=== PATIENT | female | born 1980 | race Caucasian/White ===

== ENCOUNTER 2017-06-30 08:10 | Inpatient (IN) | payer MEDICAID ==
[~2017-06-30] VITALS: Ht 157.5 cm; Wt 89.6 kg
[2017-06-30 08:27] VITALS: Ht 157.5 cm; Wt 89.6 kg
[2017-06-30 08:28] VITALS: BP 122/61; PULSE 81
[2017-06-30] MEDS ORDERED: ACET500C5 PO (08:40)
[2017-06-30] MEDS ORDERED: PRENAT PO (08:40)
[2017-06-30] MEDS ORDERED: MAGNESIUM SULFATE 4 GM/100 ML 100 ML IV ONE (09:30)
[2017-06-30] MEDS: LACTATED RINGER'S 1,000 ML IV SCH ×2 (10:02→15:02)
[2017-06-30 10:45] LABS: ADD UMIC NO; UR ASCORBIC ACID NEGATIVE (NEGATIVE); UR BILIRUBIN (Dip) NEGATIVE (NEGATIVE); UR BLOOD (Dip) NEGATIVE (NEGATIVE); UR CLARITY CLEAR (CLEAR); UR COLOR STRAW (YELLOW); UR GLUCOSE (Dip) NEGATIVE (NEGATIVE); UR KETONES (Dip) NEGATIVE (NEGATIVE); UR LEUKOCYTE ESTERASE (Dip) NEGATIVE Leu/ul (NEGATIVE); UR NITRITE (Dip) NEGATIVE (NEGATIVE); UR SPECIFIC GRAVITY (Dip) 1.009 (1.003-1.030); UR TOTAL PROTEIN (Dip) NEGATIVE (NEGATIVE); UR UROBILINOGEN (Dip) NEGATIVE (NEGATIVE)
--- NOTE | 2017-06-30 10:55 | RADRPT ---
PROCEDURE: Obstetrical ultrasound CLINICAL INDICATION: labor TECHNIQUE: Multiple sonographic images of the pelvis were obtained. The images were reviewed on a PACS workstation. COMPARISON: None FINDINGS: The cervix is closed with a length of 4.3 cm. There is a single viable intrauterine gestation. Cardiac activity is present with 154 beats per minute. There is a breech presentation. The placenta is anterior. There is no evidence for an abruption or placenta previa. There is a subjectively normal amount of amniotic fluid. Measurements were made in order to determine age. The results are as follows (cm): BPD =6.30 HC =22.51 AC =20.76 FL =4.71 Estimated gestational age by ultrasound of approximately 25 weeks, 2 days. The estimated date of delivery by ultrasound is 10/11/2017. Estimated gestational age by LMP of approximately 25 weeks, 0 days. The estimated date of delivery by LMP is 10/13/2017. EFW = 805 grams (58th percentile) IMPRESSION: Single viable intrauterine gestation of approximately 25 weeks, 2 days . The estimated date of delivery is 10/11/2017 . Dating by ultrasound is within 2 days of dating by LMP. Breech presentation. The cervix is closed and measures 4.3 cm in length. RPTAT: EE Physician John Date Time Electronically viewed and signed by Physician John on 06/30/2017 10:54 MAYELIN
[2017-06-30] MEDS: BETAMET NA PHOS/AC(6 MG/ML) 5ML INJ IM SCH (11:19)
[2017-06-30] MEDS: MAGNESIUM SULFATE 20 GM/500 ML 500 ML IV SCH ×2 (11:25→21:45)
[2017-06-30] MEDS ORDERED: ZOLPIDEM 5 MG TAB PO PRN (11:30)
[2017-06-30] MEDS ORDERED: ACETAMINOPHEN 325 MG TAB PO PRN (11:30)
--- NOTE | 2017-06-30 11:57 | HP ---
Date/Time of Note Date/Time of Note DATE: 06/30/17 TIME: 11:55 OB - History Hx of Present Free Text/Dictation 25+wks With CTX Was evaluated and idscharged in [place] last night : 2 Para: 1 Care: Good Care Ultrasounds: Normal mid trimester US Obstetrical Complications: None Medical Complications: None Past Family/Social History * Past Medical, Surgical, Family and Obstetric Histories reviewed from chart. OB Admission Exam Vital Signs Vital Signs Vital Signs Date Time Temp Pulse Resp B/P Pulse Ox O2 Delivery O2 Flow Rate FiO2 06/30/17 08:28 98.1 81 122/61 Physical Exam Abdomen: WNL Membranes: Intact Accelerations: Accelerations Present Decelerations: No Decelerations Varibility: Minimum Contractions on Admission: < 5 Minutes Apart OB Assessment/Plan Reason for admission: observation Plan: Expectant Management Other plan: Mg Steroid Prenatalogy consult\ CXL &EFW F/u records from [place] Urine culture MACHO TENORIO M.D. Jun 30, 2017 11:57
[2017-06-30 12:37] LABS: BASOPHILS % 0.2 % (0.0-2.0); EOSINOPHILS # 0.1 10^3/ul (0.0-0.5); EOSINOPHILS % 0.6 % (0.0-7.0); HEMATOCRIT 38.6 % (37.0-47.0); HEMOGLOBIN 13.5 g/dl (12.0-16.0); LYMPHOCYTES # 1.7 10^3/ul (0.8-2.9); LYMPHOCYTES % 13.6 % (15.0-51.0); MEAN CORPUSCULAR VOLUME 88.5 fl (82.0-101.0); MEAN PLATELET VOLUME 11.3 fl (7.4-10.4); MONOCYTE # 0.7 10^3/ul (0.3-0.9); MONOCYTES % 5.7 % (0.0-11.0); NEUTROPHILS % 79.4 % (39.0-77.0); PLATELET COUNT 215 10^3/UL (140-415); RED BLOOD COUNT 4.36 10^6/ul (4.20-5.40); RED CELL DISTRIBUTION WIDTH 13.3 % (11.5-14.5); WHITE BLOOD COUNT 12.4 10^3/ul (4.8-10.8)
[2017-06-30 12:50] LABS: BARBITURATES Negative (NEGATIVE); BENZODIAZEPINES Negative (NEGATIVE); CANNABINOIDS Negative (NEGATIVE); COCAINE Negative (NEGATIVE); OPIATES Negative (NEGATIVE)
[2017-06-30 12:55] LABS: INR 0.93; PROTIME 12.5 Sec (12.2-14.2)
[2017-07-01] MEDS: LACTATED RINGER'S 1,000 ML IV SCH ×2 (01:28→02:20)
[2017-07-01] MEDS: MAGNESIUM SULFATE 20 GM/500 ML 500 ML IV SCH (07:34)
--- NOTE | 2017-07-01 08:53 | QN ---
Documentation Comment doing well no uterine ctx tracing category 1 will receive second dose of steroids today and will d/c home LOBITO THAYER MD Jul 01, 2017 08:53
--- NOTE | 2017-07-01 08:54 | DS ---
Date/Time of Note Date/Time of Note DATE: 07/01/17 TIME: 08:54 Discharge Summary Admission/Discharge Info Admit Date/Time Jun 30, 2017 at 09:15 Discharge Date/Time Discharge Diagnosis labor Patient Condition: Stable Hospital Course beta methasone and magnesium Home Meds Reported Medications Acetaminophen* (Tylophen*) 500 Mg Capsule, 500 MG PO Q6H Y for PAIN, TAB 06/30/17 Multivit/Min/Fol Ac/Iron/Pren* ( S*) 1 Tab Tab, 1 TAB PO DAILY, TAB 06/30/17 Primary Care Provider Care Physician No Primary Pending Labs Laboratory Tests Test 06/30/17 10:05 06/30/17 13:49 06/30/17 20:11 07/01/17 02:07 White Blood Count 12.410^3/ul (4.8-10.8) Red Blood Count 4.3610^6/ul (4.20-5.40) Hemoglobin 13.5g/dl (12.0-16.0) Hematocrit 38.6% (37.0-47.0) Mean Corpuscular Volume 88.5fl (82.0-101.0) Mean Corpuscular Hemoglobin 31.0pg (29.0-33.0) Mean Corpuscular Hemoglobin Concent 35.0g/dl (32.0-37.0) Red Cell Distribution Width 13.3% (11.5-14.5) Platelet Count 17308^3/UL (140-415) Mean Platelet Volume 11.3fl (7.4-10.4) Neutrophils % 79.4% (39.0-77.0) Lymphocytes % 13.6% (15.0-51.0) Monocytes % 5.7% (0.0-11.0) Eosinophils % 0.6% (0.0-7.0) Basophils % 0.2% (0.0-2.0) Nucleated Red Blood Cells % 0.0/100WBC (0.0-0.0) Neutrophils # (Manual) 9.810^3/ul (1.7-7.5) Lymphocytes # 1.710^3/ul (0.8-2.9) Monocytes # 0.710^3/ul (0.3-0.9) Eosinophils # 0.110^3/ul (0.0-0.5) Basophils # 0.010^3/ul (0.0-0.1) Nucleated Red Blood Cells # 0.010^3/ul (0.0-0.0) Prothrombin Time 12.5Sec (12.2-14.2) Prothrombin Time Ratio 1.0 INR International Normalized Ratio 0.93 Activated Partial Thromboplast Time 32.0Sec (25.0-35.0) Urine Color STRAW (YELLOW) Urine Clarity CLEAR (CLEAR) Urine pH 7.0 (5.0-9.0) Urine Specific [place] 1.009 (1.003-1.030) Urine Ketones NEGATIVEmg/dL (NEGATIVE) Urine Nitrite NEGATIVEmg/dL (NEGATIVE) Urine Bilirubin NEGATIVEmg/dL (NEGATIVE) Urine Urobilinogen NEGATIVEmg/dL (NEGATIVE) Urine Leukocyte Esterase NEGATIVELeu/ul (NEGATIVE) Urine Hemoglobin NEGATIVEmg/dL (NEGATIVE) Urine Glucose NEGATIVEmg/dL (NEGATIVE) Urine Total Protein NEGATIVEmg/dl (NEGATIVE) Urine Opiates Screen Negative (NEGATIVE) Urine Barbiturates Negative (NEGATIVE) Urine Amphetamines Screen Negative (NEGATIVE) Urine Benzodiazepines Screen Negative (NEGATIVE) Urine Cocaine Screen Negative (NEGATIVE) Urine Cannabinoids Negative (NEGATIVE) Rapid Plasma Reagin NONREACTIVE (NR) Magnesium Level 4.2mg/dl (1.7-2.5) 4.9mg/dl (1.7-2.5) 5.3mg/dl (1.7-2.5) Hepatitis B Surface Antigen NEGATIVE (NEGATIVE) HIV (1&2) Antibody NEGATIVE (NEGATIVE) LOBITO THAYER MD Jul 01, 2017 08:54
[2017-07-01] MEDS: BETAMET NA PHOS/AC(6 MG/ML) 5ML INJ IM SCH (11:28)
[2017-07-02 12:21] LABS: RUBELLA ANTIBODY - IGG 1.45 index
== END 2017-07-01 17:12 | disposition home or self-care (01) | DRG 778 ==
LOC: OBT 08:10 → L-D 08:14 → OBT 09:15 → OBG 09:15
PROVIDERS: ADMIT Obstetrics & Gynecology; ATTEND Obstetrics & Gynecology
DX: O60.02 Preterm labor without delivery, second trimester (principal); Z3A.25 25 weeks gestation of pregnancy
CPT/HCPCS: 76815; 76817; 80307; 81003; 83735; 85025; 85610; 85730; 86592; 86703; 86762; 86900; 86901; 87340; G0463; J0702; J3475; J7120

== ENCOUNTER 2017-08-06 10:17 | Emergency (ER) | payer MEDICAID ==
[~2017-08-06] VITALS: Wt 93.5 kg
[~2017-08-06 10:17] MED LIST: ACET500C5 PO; PRENAT PO
[2017-08-06] MEDS ORDERED: ACETAMINOPHEN 325 MG TAB PO ONE (11:00)
--- NOTE | 2017-08-06 11:10 | ERD ---
ER Documentation Chief Complaint Date/Time DATE: 08/06/17 TIME: 11:07 Chief Complaint chest pain x1 day, pt 30 wks pg, no vb/cramping HPI This is a very pleasant 37-year-old female who is a at approximately 30 weeks gestation who presents to the emergency room with chest pain. She describes approximately 24 hours of left-sided chest pain that is dull, worse to touch and worse with movement of her chest but not pleuritic. She denies any sudden onset of pain, no migratory pain, no pleuritic pain. She denies any dyspnea on exertion or lower extremity swelling. She denies any abdominal bloating or swelling or pain, no vaginal bleeding. No family history of DVT or PE or early cardiac disease. She denies any fevers chills or cough. ROS All systems reviewed and are negative except as per history of present illness. Medications Home Meds Reported Medications Acetaminophen* (Tylophen*) 500 Mg Capsule, 500 MG PO Q6H Y for PAIN, TAB 06/30/17 Multivit/Min/Fol Ac/Iron/Pren* ( S*) 1 Tab Tab, 1 TAB PO DAILY, TAB 06/30/17 Allergies Allergies: Coded Allergies: No Known Allergy (Unverified , 06/30/17) FmHx Family History: No coronary disease, No diabetes Physical Exam Vitals Vital Signs Date Time Temp Pulse Resp B/P Pulse Ox O2 Delivery O2 Flow Rate FiO2 08/06/17 10:19 97.4 92 18 126/76 100 Physical Exam General: Well developed, well nourished, no acute distress Head: Normocephalic, atraumatic. Eyes: Pupils equally reactive, EOM intact ENT: Moist mucous membranes Neck: Supple, no lymphadenopathy Respiratory: Lungs clear bilaterally, no distress, reproducible chest wall tenderness along the left chest and sternum Cardiovascular: RRR, no murmurs, rubs, or gallops Abdominal: Soft, non-tender, non-distended, no peritoneal signs : Deferred MSK: No edema, no unilateral swelling, 5/5 strength Neurologic: Alert and oriented, moving all extremities, normal speech, no focal weakness, no cerebellar signs Skin: No rash Psych: Normal mood Results 24 hrs Current Medications Medications (Trade) Dose Ordered Sig/Mich Route PRN Reason Start Time Stop Time Status Last Admin Dose Admin Acetaminophen (Tylenol Tab) 650 mg ONCE ONCE PO 10/17/17 11:00 08/06/17 11:01 DC Procedures/MDM EKG, MONITORS, & DIAGNOSTIC IMAGING: EKG: I reviewed and interpreted a 12-lead EKG. Rhythm: Normal sinus rhythm Ectopy: None Intervals: No abnormalities ST segments: No elevations or depressions T waves: No contiguous inversions MEDICAL DECISION MAKING: The patient presents with very reproducible chest wall pain. She has not taken any Tylenol or Motrin. A commercial loan administrator was used during her interaction. I believe that her chest pain is most consistent with musculoskeletal etiology. The patient has no signs or symptoms concerning for pneumothorax. Her EKG shows no evidence of cardiac strain or right heart strain. The patient does not exhibit any signs or symptoms concerning for pulmonary embolism. She has no pleuritic pain no hypoxia no tachycardia no evidence of DVT. She has reproducible symptoms. No indication for PE workup given the risks of radiation outweigh the benefits. No indication for chest x-ray for similar reasons. The patient does not have risk factors for early cardiac disease and has a nonischemic EKG I do not believe the laboratory testing or troponin is indicated. No evidence of dissection and no migratory pain. ER COURSE: The patient was given Tylenol and an EKG was performed. The patient remains well-appearing and has been medically cleared in the emergency department for her chest pain. The patient will be discharged and sent to labor and delivery triage for NST and further evaluation. All questions were answered. I kept the patient and/or family informed of laboratory and diagnostic imaging results throughout the emergency room course. DISPOSITION PLAN: We discussed follow up with the patient's primary care doctor within 24 to 48 hours as needed. We also discussed return to the emergency room for worsening symptoms or worsening condition. Outpatient referral: [None required] Discharge Medications: Tylenol as needed for pain Departure Diagnosis: Primary Impression: Chest wall pain Condition: Stable EVELIA SCHREIBER MD Aug 06, 2017 11:10
[2017-08-06] MEDS ORDERED: ACET325T33 PO (11:13)
[2017-08-06 11:28] VITALS: BP 130/89; PULSE 84; RESP 20
[2017-08-06] MEDS ORDERED: OMEP20CA16 PO (12:18)
== END 2017-08-06 11:34 | disposition home or self-care (01) ==
LOC: E/R 10:17
DX: O99.89 Other specified diseases and conditions complicating pregnancy, childbirth and the puerperium (principal); R40.2252 Coma scale, best verbal response, oriented, at arrival to emergency department; R07.89 Other chest pain; R40.2142 Coma scale, eyes open, spontaneous, at arrival to emergency department; R40.2362 Coma scale, best motor response, obeys commands, at arrival to emergency department; Z3A.30 30 weeks gestation of pregnancy
CPT/HCPCS: 93005; Z7502; Z7610

== ENCOUNTER 2017-08-06 11:50 | Outpatient (CLI) | payer MEDICAID ==
[~2017-08-06] VITALS: Ht 157.5 cm; Wt 93.0 kg
[~2017-08-06 11:50] MED LIST changes: +ACET325T33 PO
[2017-08-06] MEDS ORDERED: OMEP20CA16 PO (12:18)
[2017-08-06 12:19] VITALS: BP 114/64; PULSE 70; RESP 18; Ht 157.5 cm; Wt 93.0 kg
--- NOTE | 2017-08-06 13:31 | RADRPT ---
PROCEDURE: US OB biophysical profile. Ultrasound cervix CLINICAL INDICATION: decreased movements, labor TECHNIQUE: Multiple sonographic images of the pelvis were obtained. In addition, transvaginal hua ges of the cervix were obtained. The images were reviewed on a PACS workstation. COMPARISON: US 06/30/2017 FINDINGS: There is a single viable intrauterine gestation. Cardiac activity is present with 142 beats per min chely. There is a transverse maternal left presentation. The placenta is left lateral. There is no evidence of placental abruption. There is a normal amount of amniotic fluid with an DELMER = 15.1 cm. The cervix is closed and measures 4.1 cm in length. Biophysical profile: movement 2/2 tone 2/2. breathing 2/2 DELMER 2/2 Total 05/28 RPTAT: AA . IMPRESSION: Normal biophysical profile. Cervix measures 4.1 cm in length. .Chon Bedolla MD, MD Date Time Electronically viewed and signed by .Chon Bedolla MD, MD on 08/06/2017 13:30 .S/
--- NOTE | 2017-08-06 14:05 | PN ---
Triage Information Date/Time Reason for visit: Cleared by ER for Chest pain .she is here for BPP and well being Weeks of Gestation 30+ /Para 2/1 Diabetes: none Hypertention: none Objective Vital Signs Date Time Temp Pulse Resp B/P Pulse Ox O2 Delivery O2 Flow Rate FiO2 08/06/17 12:19 98.7 70 18 114/64 96 Room Air Heart Rate: 140's Disposition: Discharge MACHO TENORIO M.D. Aug 06, 2017 14:05
--- NOTE | 2017-08-06 14:13 | TRIAGE ---
OB Triage Datetime Report Generated by CPN: 08/06/2017 14:12 Datetime: 08/06/2017 13:08 Stage of : OB Triage Maternal Assessment Level of Consciousness: Fully Conscious Labor Evaluation Frequency: NONE Monitor Mode: External Resting Tone Utting: Relaxed Heart Rate FHR Baseline Rate: 135 Monitor Mode: External US Variability: Moderate 6-25 bpm Accelerations: 15X15 Decelerations: None Category: Category I Pain Assessment Pain Scale: 2 Pain Presence: Constant Pain Type: Ache Pain Location: Right Chest; Left Chest Pain Goal: 3 Pain Relief Measures: PT SEEN AND TREATED FOR C/O CP IN ED PRIOR TO ARRIVAL Vaginal Exam Membrane Status: Intact Vaginal Bleeding: None Datetime: 08/06/2017 12:14 Assessment Type: Triage Maternal Assessment Level of Consciousness: Fully Conscious DTR's/Clonus: DTRs 2+; No Clonus Headache: Denies Blurred Vision: No Respiratory Effort: Unlabored; Regular Rhythm; Equal Expansion Breath Sounds, Left: Clear and Equal Breath Sounds, Right: Clear and Equal Nausea/Vomiting: Denies RUQ Epigastric Pain: Denies Lower Extremities Edema: None Degree: None Upper Extremities Edema: None Degree: None Facial Edema: None Fall Risk Assessment History of Falling: (0) No Secondary Diagnosis: (0) No Ambulatory Aid: (0) Bedrest/Nurse Assist IV Therapy: (0) No Gait: (0) Normal/Bedrest/Immobile Mental Status: (0) Oriented to Own Ability Fall Score: 0 Fall Risk Score Definition: No Risk: No action required Datetime: 08/06/2017 12:12 Time of Arrival: 08/06/2017 11:32 EGA: 30.2 Arrived By: Ambulatory Arrived From: Emergency Dept Chief Complaint: PT SENT FROM ED C/O CP, TO EVAL. FETUS. Movement: Present Contractions: Denies/Absent Rupture of Membranes: Denies Vaginal Bleeding: None Vaginal Discharge: Denies Recent Sexual Intercouse: Denies Abdominal Trauma: Not Applicable Time Provider Notified: 08/06/2017 12:35 Provider Notified: FLACA Initial Plan: EFM, CVL, BPP Datetime: 08/06/2017 12:09 Monitor Mode: External US Datetime: 07/01/2017 16:38 Labor Evaluation Frequency: 0 Monitor Mode: External Resting Tone Utting: Relaxed Heart Rate FHR Baseline Rate: 135 FHR Baseline Changes: No Baseline Change Variability: Moderate 6-25 bpm Accelerations: 10X10 Decelerations: None Comments: aga Pain Presence: None/Denies Datetime: 07/01/2017 14:14 Labor Evaluation Frequency: 0 Monitor Mode: External Resting Tone Utting: Relaxed Datetime: 07/01/2017 13:13 Labor Evaluation Frequency: 0 Monitor Mode: External Resting Tone Utting: Relaxed Contraction Comments: pt denies feeling contractions or cramping Datetime: 07/01/2017 12:37 Labor Evaluation Frequency: 0 Monitor Mode: External Resting Tone Utting: Relaxed Heart Rate FHR Baseline Rate: 130 Monitor Mode: External US FHR Baseline Changes: Bradycardia Variability: Moderate 6-25 bpm Accelerations: 10X10 Decelerations: None Comments: aga Datetime: 07/01/2017 11:10 Labor Evaluation Frequency: 0 Monitor Mode: External Resting Tone Utting: Relaxed Heart Rate FHR Baseline Rate: 125 Monitor Mode: External US FHR Baseline Changes: No Baseline Change Variability: Moderate 6-25 bpm Accelerations: 10X10 Decelerations: None Comments: aga Datetime: 07/01/2017 11:00 Labor Evaluation Frequency: 0 Monitor Mode: External Duration (sec)2399: 0 Pattern: Normal: <= 5 Contractions in 10 Minutes Resting Tone Utting: Relaxed Contraction Comments: DENIES ANY UC'S. ABDOMEN SOFT TO PALPATION Heart Rate FHR Baseline Rate: 130 Monitor Mode: External US FHR Baseline Changes: No Baseline Change Variability: Moderate 6-25 bpm Accelerations: 10X10 Decelerations: None Category: Category I Datetime: 07/01/2017 10:29 Labor Evaluation Frequency: 0 Monitor Mode: External Duration (sec)2399: 0 Pattern: Normal: <= 5 Contractions in 10 Minutes Resting Tone Utting: Relaxed Heart Rate FHR Baseline Rate: 130 Monitor Mode: External US FHR Baseline Changes: No Baseline Change Variability: Moderate 6-25 bpm Accelerations: 10X10 Decelerations: None Category: Category I Datetime: 07/01/2017 09:59 Maternal Assessment Level of Consciousness: Fully Conscious DTR's/Clonus: DTRs 2+ Headache: Denies Blurred Vision: No Nausea/Vomiting: Denies RUQ Epigastric Pain: Denies Facial Edema: None Labor Evaluation Frequency: 0 Monitor Mode: External Duration (sec)2399: 0 Pattern: Normal: <= 5 Contractions in 10 Minutes Resting Tone Utting: Relaxed Heart Rate FHR Baseline Rate: 130 Pain Presence: None/Denies Pain Type: N/A Datetime: 07/01/2017 09:30 Labor Evaluation Frequency: 0 Monitor Mode: External Duration (sec)2399: 0 Pattern: Normal: <= 5 Contractions in 10 Minutes Resting Tone Utting: Relaxed Comments: PT SITTING UP IN BED EATING BREAKFAST. DUE TO GA, DIFFICULT TO CONTINUOUSLY MONITOR AT T HIS TIME Datetime: 07/01/2017 08:59 Labor Evaluation Frequency: 0 Duration (sec)2399: 0 Pattern: Normal: <= 5 Contractions in 10 Minutes Resting Tone Utting: Relaxed Heart Rate FHR Baseline Rate: 130 Datetime: 07/01/2017 08:29 Labor Evaluation Frequency: 0 Monitor Mode: External Duration (sec)2399: 0 Pattern: Normal: <= 5 Contractions in 10 Minutes Resting Tone Utting: Relaxed Heart Rate FHR Baseline Rate: 130 Monitor Mode: External US FHR Baseline Changes: No Baseline Change Variability: Moderate 6-25 bpm Accelerations: 10X10 Decelerations: None Category: Category I Datetime: 07/01/2017 08:00 Labor Evaluation Frequency: 0 Monitor Mode: External Duration (sec)2399: 0 Pattern: Normal: <= 5 Contractions in 10 Minutes Resting Tone Utting: Relaxed Contraction Comments: ABDOMEN SOFT TO PALPATION. PT DENIES FEELING ANY CONTRACTIONS Heart Rate FHR Baseline Rate: 130 Monitor Mode: External US FHR Baseline Changes: No Baseline Change Variability: Moderate 6-25 bpm Accelerations: 10X10 Decelerations: None Category: Category I Datetime: 07/01/2017 07:22 Heart Rate FHR Baseline Rate: 135 Monitor Mode: External US FHR Baseline Changes: No Baseline Change Variability: Moderate 6-25 bpm Accelerations: 10X10 Decelerations: None Category: Category I Datetime: 07/01/2017 07:21 Assessment Type: Ongoing Assessment Maternal Assessment Level of Consciousness: Fully Conscious Maternal Assessment Level of Consciousness: Fully Conscious DTR's/Clonus: DTRs 2+; No Clonus DTR's/Clonus: DTRs 2+ Headache: Denies Headache: Denies Blurred Vision: No Blurred Vision: No Respiratory Effort: Unlabored; Regular Rhythm; Equal Expansion Respiratory Effort: Unlabored Breath Sounds, Left: Clear and Equal Breath Sounds, Left: Clear and Equal Breath Sounds, Right: Clear and Equal Breath Sounds, Right: Clear and Equal Nausea/Vomiting: Denies Nausea/Vomiting: Denies RUQ Epigastric Pain: Denies RUQ Epigastric Pain: Denies Lower Extremities Edema: None Degree: None Upper Extremities Edema: None Degree: None Facial Edema: None Facial Edema: None Fall Risk Assessment History of Falling: (0) No Secondary Diagnosis: (0) No Ambulatory Aid: (0) Bedrest/Nurse Assist IV Therapy: (20) Yes Gait: (0) Normal/Bedrest/Immobile Mental Status: (0) Oriented to Own Ability Fall Score: 20 Fall Risk Score Definition: No Risk: No action required Datetime: 07/01/2017 07:20 Stage of : Antepartum Labor Evaluation Frequency: 0 Monitor Mode: External Duration (sec)2399: 0 Pattern: Normal: <= 5 Contractions in 10 Minutes Resting Tone Utting: Relaxed Pain Assessment Pain Scale: 0 Pain Presence: None/Denies Pain Type: N/A Pain Goal: 2 Datetime: 07/01/2017 04:01 Stage of : Antepartum Maternal Assessment Level of Consciousness: Fully Conscious DTR's/Clonus: DTRs 2+; No Clonus Headache: Denies Breath Sounds, Left: Clear and Equal Breath Sounds, Right: Clear and Equal Nausea/Vomiting: Denies RUQ Epigastric Pain: Denies Temperature Route: Axillary Labor Evaluation Frequency: 0 Monitor Mode: External Duration (sec)2399: 0 Resting Tone Utting: Relaxed Heart Rate FHR Baseline Rate: 135 Monitor Mode: External US FHR Baseline Changes: No Baseline Change Variability: Moderate 6-25 bpm Accelerations: 10X10 Decelerations: None Comments: REACTIVE Pain Assessment Pain Scale: 0 Pain Presence: None/Denies Pain Type: N/A Pain Goal: 0 Pain Assessment Comments: PT STATES ANALGESIA HELPED ELIMINATE HER HEADACHE Vaginal Exam Membrane Status: Intact Vaginal Bleeding: None Datetime: 07/01/2017 03:20 Stage of : Antepartum Labor Evaluation Frequency: OCCAS. UTERINE IRRITABILITY Monitor Mode: External Duration (sec)2399: 10-20 Pattern: Normal: <= 5 Contractions in 10 Minutes Resting Tone Utting: Relaxed Interventions: Side to Side Heart Rate FHR Baseline Rate: 135 Monitor Mode: External US FHR Baseline Changes: No Baseline Change Variability: Moderate 6-25 bpm Accelerations: 15X15 Decelerations: None Category: Category I Comments: REACTIVE Pain Assessment Pain Scale: 0 Pain Presence: None/Denies Pain Type: N/A Pain Goal: 0 Datetime: 07/01/2017 02:42 Stage of : Antepartum Maternal Assessment Level of Consciousness: Fully Conscious DTR's/Clonus: DTRs 2+; No Clonus Breath Sounds, Left: Clear and Equal Breath Sounds, Right: Clear and Equal Nausea/Vomiting: Denies RUQ Epigastric Pain: Denies Temperature Route: Axillary Pain Assessment Pain Scale: 2 Pain Presence: Constant Pain Type: Dull; Ache Pain Location: Head Pain Goal: 2 Pain Relief Measures: Pain Medication Given Vaginal Exam Membrane Status: Intact Vaginal Bleeding: None Datetime: 07/01/2017 02:21 Stage of : Antepartum Maternal Assessment Level of Consciousness: Fully Conscious DTR's/Clonus: DTRs 2+ Headache: Temporal Blurred Vision: No Respiratory Effort: Unlabored Breath Sounds, Left: Clear and Equal Breath Sounds, Right: Clear and Equal Nausea/Vomiting: Denies RUQ Epigastric Pain: Denies Facial Edema: None Labor Evaluation Frequency: 0 Monitor Mode: External Duration (sec)2399: 0 Pattern: Normal: <= 5 Contractions in 10 Minutes Resting Tone Utting: Relaxed Contraction Comments: pt states no pressure or pain Heart Rate FHR Baseline Rate: 140 Monitor Mode: External US FHR Baseline Changes: No Baseline Change Variability: Moderate 6-25 bpm Accelerations: 15X15 Decelerations: None Category: Category I Pain Assessment Pain Scale: 2 Pain Presence: Constant Pain Type: Dull; Ache Pain Location: Head Pain Goal: 2 Pain Relief Measures: Comfort Measures Pain Assessment Comments: pt states mild headache for "about 2 hiurs" Vaginal Exam Membrane Status: Intact Datetime: 07/01/2017 01:07 Interventions: Side to Side Decelerations: Variable Datetime: 07/01/2017 01:00 Stage of : Antepartum Maternal Assessment Level of Consciousness: Fully Conscious DTR's/Clonus: DTRs 2+; No Clonus Headache: Denies Breath Sounds, Left: Clear and Equal Breath Sounds, Right: Clear and Equal Nausea/Vomiting: Denies RUQ Epigastric Pain: Denies Temperature Route: Axillary Datetime: 07/01/2017 00:00 Stage of : Antepartum Maternal Assessment Level of Consciousness: Fully Conscious DTR's/Clonus: DTRs 2+; No Clonus Headache: Denies Breath Sounds, Left: Clear and Equal Breath Sounds, Right: Clear and Equal Nausea/Vomiting: Denies RUQ Epigastric Pain: Denies Temperature Route: Axillary Labor Evaluation Frequency: 0 Monitor Mode: External Duration (sec)2399: 0 Pain Assessment Pain Scale: 0 Pain Goal: 0 Datetime: 06/30/2017 23:26 Stage of : Antepartum Maternal Assessment Level of Consciousness: Fully Conscious DTR's/Clonus: DTRs 2+ Headache: Denies Blurred Vision: No Respiratory Effort: Unlabored Breath Sounds, Left: Clear and Equal Breath Sounds, Right: Clear and Equal Nausea/Vomiting: Denies RUQ Epigastric Pain: Denies Facial Edema: None Labor Evaluation Frequency: X2/HOUR Monitor Mode: External Duration (sec)2399: 20-25 Pattern: Normal: <= 5 Contractions in 10 Minutes Resting Tone Utting: Relaxed Heart Rate FHR Baseline Rate: 140 Monitor Mode: External US FHR Baseline Changes: No Baseline Change Variability: Moderate 6-25 bpm Accelerations: 10X10 Decelerations: None Category: Category I Pain Assessment Pain Scale: 0 Pain Presence: None/Denies Pain Type: N/A Vaginal Exam Membrane Status: Intact Datetime: 06/30/2017 22:00 Stage of : Antepartum Maternal Assessment Level of Consciousness: Fully Conscious DTR's/Clonus: DTRs 2+ Headache: Denies Blurred Vision: No Respiratory Effort: Unlabored Breath Sounds, Right: Clear and Equal Nausea/Vomiting: Denies RUQ Epigastric Pain: Denies Facial Edema: None Labor Evaluation Frequency: 0 Monitor Mode: External Duration (sec)2399: 0 Pattern: Normal: <= 5 Contractions in 10 Minutes Resting Tone Utting: Relaxed Heart Rate FHR Baseline Rate: 150 Monitor Mode: External US FHR Baseline Changes: No Baseline Change Variability: Moderate 6-25 bpm Accelerations: 10X10 Category: Category I Pain Assessment Pain Scale: 0 Pain Presence: None/Denies Pain Type: N/A Vaginal Exam Membrane Status: Intact Datetime: 06/30/2017 21:25 Stage of : Antepartum Maternal Assessment Level of Consciousness: Fully Conscious DTR's/Clonus: DTRs 2+ Headache: Denies Blurred Vision: No Respiratory Effort: Unlabored Breath Sounds, Left: Clear and Equal Breath Sounds, Right: Clear and Equal Nausea/Vomiting: Denies RUQ Epigastric Pain: Denies Facial Edema: None Labor Evaluation Frequency: X2/ONE HOUR Monitor Mode: External Duration (sec)2399: 30-35 Quality: Mild Pattern: Normal: <= 5 Contractions in 10 Minutes Resting Tone Utting: Relaxed Heart Rate FHR Baseline Rate: 140 Monitor Mode: External US FHR Baseline Changes: No Baseline Change Variability: Moderate 6-25 bpm Accelerations: 10X10 Decelerations: Variable Category: Category I Comments: VARIABLE TO 120 FOR 10-12 SECONDS WITH RETURN TO BASELINE Pain Assessment Pain Scale: 0 Pain Presence: None/Denies Pain Type: N/A Vaginal Exam Membrane Status: Intact Datetime: 06/30/2017 20:00 Stage of : Antepartum Maternal Assessment Level of Consciousness: Fully Conscious DTR's/Clonus: DTRs 2+; No Clonus Headache: Denies Breath Sounds, Left: Clear and Equal Breath Sounds, Right: Clear and Equal Nausea/Vomiting: Denies RUQ Epigastric Pain: Denies Temperature Route: Axillary Pain Assessment Pain Scale: 0 Pain Presence: None/Denies Pain Type: N/A Pain Goal: 2 Datetime: 06/30/2017 19:43 Stage of : Antepartum Assessment Type: Ongoing Assessment Maternal Assessment Level of Consciousness: Fully Conscious Maternal Assessment Level of Consciousness: Fully Conscious DTR's/Clonus: DTRs 2+; No Clonus DTR's/Clonus: DTRs 2+ Headache: Denies Headache: Denies Blurred Vision: No Blurred Vision: No Respiratory Effort: Unlabored; Regular Rhythm; Equal Expansion Respiratory Effort: Unlabored Breath Sounds, Left: Clear and Equal Breath Sounds, Left: Clear and Equal Breath Sounds, Right: Clear and Equal Breath Sounds, Right: Clear and Equal Nausea/Vomiting: Denies Nausea/Vomiting: Denies RUQ Epigastric Pain: Denies RUQ Epigastric Pain: Denies Lower Extremities Edema: None Degree: None Upper Extremities Edema: None Degree: None Facial Edema: None Facial Edema: None Fall Risk Assessment History of Falling: (0) No Secondary Diagnosis: (0) No Ambulatory Aid: (0) Bedrest/Nurse Assist Gait: (0) Normal/Bedrest/Immobile Mental Status: (0) Oriented to Own Ability Labor Evaluation Frequency: X1 Monitor Mode: External Duration (sec)2399: 35-40 Quality: Mild Pattern: Normal: <= 5 Contractions in 10 Minutes Resting Tone Utting: Relaxed Pain Presence: None/Denies Pain Type: N/A Vaginal Exam Membrane Status: Intact Datetime: 06/30/2017 19:00 Labor Evaluation Frequency: X2 Monitor Mode: External Duration (sec)2399: 50-60 Quality: Mild Pattern: Normal: <= 5 Contractions in 10 Minutes Resting Tone Utting: Relaxed Pain Assessment Pain Scale: 1 Pain Presence: Intermittent Pain Type: Cramping Pain Location: Abdomen Pain Relief Measures: Comfort Measures Datetime: 06/30/2017 18:00 Labor Evaluation Frequency: 0 Monitor Mode: External Pattern: Normal: <= 5 Contractions in 10 Minutes Resting Tone Utting: Relaxed Pain Assessment Pain Scale: 1 Pain Presence: Intermittent Pain Type: Cramping Pain Location: Abdomen Pain Relief Measures: Pain Medication Given Datetime: 06/30/2017 17:00 Labor Evaluation Frequency: 0 Monitor Mode: External Pattern: Normal: <= 5 Contractions in 10 Minutes Resting Tone Utting: Relaxed Pain Assessment Pain Scale: 1 Pain Presence: Intermittent Pain Type: Cramping Pain Location: Abdomen Pain Relief Measures: Comfort Measures Datetime: 06/30/2017 16:00 Labor Evaluation Frequency: Z1 Monitor Mode: External Duration (sec)2399: 40 Quality: Mild Pattern: Normal: <= 5 Contractions in 10 Minutes Resting Tone Utting: Relaxed Pain Assessment Pain Scale: 3 Pain Presence: Intermittent Pain Type: Cramping Pain Location: Abdomen Pain Relief Measures: Comfort Measures Datetime: 06/30/2017 15:00 Labor Evaluation Frequency: 0 Monitor Mode: External Pattern: Normal: <= 5 Contractions in 10 Minutes Resting Tone Utting: Relaxed Pain Assessment Pain Scale: 3 Pain Presence: Intermittent Pain Type: Cramping Pain Location: Abdomen Pain Relief Measures: Comfort Measures Datetime: 06/30/2017 14:07 Comments: EXTERNAL U/S REMOVED PER MD ORDER Datetime: 06/30/2017 14:01 Labor Evaluation Frequency: X2 Monitor Mode: External Duration (sec)2399: 50 Quality: Mild Pattern: Normal: <= 5 Contractions in 10 Minutes Resting Tone Utting: Relaxed Heart Rate FHR Baseline Rate: 145 Monitor Mode: External US FHR Baseline Changes: No Baseline Change Variability: Moderate 6-25 bpm Accelerations: 15X15 Decelerations: None Category: Category I Comments: AUDIBLE MOVEMENT WITH LOSS OF CONTACT Pain Assessment Pain Scale: 3 Pain Presence: Intermittent Pain Type: Cramping Pain Location: Abdomen Pain Relief Measures: Comfort Measures Datetime: 06/30/2017 13:00 Labor Evaluation Frequency: X1 Monitor Mode: External Duration (sec)2399: 50 Quality: Mild Pattern: Normal: <= 5 Contractions in 10 Minutes Resting Tone Utting: Relaxed Heart Rate FHR Baseline Rate: 145 Monitor Mode: External US FHR Baseline Changes: No Baseline Change Variability: Moderate 6-25 bpm Decelerations: None Category: Category I Comments: AUDIBLE MOVEMENT WITH LOSS OF CONTACT Pain Assessment Pain Scale: 3 Pain Presence: Intermittent Pain Type: Cramping Pain Location: Abdomen Pain Relief Measures: Comfort Measures Datetime: 06/30/2017 12:00 Labor Evaluation Frequency: X1 Monitor Mode: External Duration (sec)2399: 50 Quality: Mild Pattern: Normal: <= 5 Contractions in 10 Minutes Resting Tone Utting: Relaxed Heart Rate FHR Baseline Rate: 145 Monitor Mode: External US FHR Baseline Changes: No Baseline Change Variability: Moderate 6-25 bpm Accelerations: 15X15 Decelerations: None Category: Category I Pain Assessment Pain Scale: 3 Pain Presence: Intermittent Pain Type: Cramping Pain Location: Abdomen Pain Relief Measures: Comfort Measures Datetime: 06/30/2017 11:00 Assessment Type: Admission Assessment Vaginal Bleeding: None Maternal Assessment Level of Consciousness: Fully Conscious DTR's/Clonus: DTRs 2+; No Clonus Headache: Denies Blurred Vision: No Respiratory Effort: Unlabored; Regular Rhythm Breath Sounds, Left: Clear and Equal Breath Sounds, Right: Clear and Equal Nausea/Vomiting: Denies RUQ Epigastric Pain: Denies Lower Extremities Edema: None Degree: None Upper Extremities Edema: None Degree: None Facial Edema: None Fall Risk Assessment History of Falling: (0) No Secondary Diagnosis: (0) No Ambulatory Aid: (0) Bedrest/Nurse Assist IV Therapy: (20) Yes Gait: (0) Normal/Bedrest/Immobile Mental Status: (0) Oriented to Own Ability Fall Score: 20 Fall Risk Score Definition: No Risk: No action required Labor Evaluation Frequency: x2 Monitor Mode: External Duration (sec)2399: 50-60 Quality: Mild Pattern: Normal: <= 5 Contractions in 10 Minutes Resting Tone Utting: Relaxed Heart Rate FHR Baseline Rate: 150 Monitor Mode: External US FHR Baseline Changes: No Baseline Change Variability: Moderate 6-25 bpm Decelerations: None Category: Category I Pain Assessment Pain Scale: 6 Pain Presence: Intermittent Pain Type: Cramping Pain Location: Abdomen Pain Goal: 5 Pain Relief Measures: Comfort Measures Vaginal Exam Membrane Status: Intact Datetime: 06/30/2017 09:16 Stage of : OB Triage Datetime: 06/30/2017 08:23 Stage of : OB Triage Assessment Type: Triage EGA: 25.0 Arrived By: Stretcher Arrived From: Other Unit in Hospital Maternal Assessment Level of Consciousness: Fully Conscious DTR's/Clonus: DTRs 2+; No Clonus Headache: Denies Blurred Vision: No Respiratory Effort: Unlabored; Regular Rhythm; Equal Expansion Breath Sounds, Left: Clear and Equal Breath Sounds, Right: Clear and Equal Nausea/Vomiting: Denies RUQ Epigastric Pain: Denies Facial Edema: None Temperature Route: Axillary Fall Risk Assessment History of Falling: (0) No Secondary Diagnosis: (0) No Ambulatory Aid: (0) Bedrest/Nurse Assist IV Therapy: (0) No Gait: (0) Normal/Bedrest/Immobile Mental Status: (0) Oriented to Own Ability Fall Score: 0 Fall Risk Score Definition: No Risk: No action required Labor Evaluation Frequency: APPLIED Monitor Mode: External Resting Tone Utting: Relaxed Heart Rate FHR Baseline Rate: 145 Monitor Mode: External US Variability: Moderate 6-25 bpm Decelerations: None Category: Category I Pain Assessment Pain Scale: 8 Pain Presence: Intermittent Pain Type: Cramping Pain Location: Perineum Pain Goal: 3 Pain Relief Measures: Comfort Measures Datetime: 06/30/2017 08:21 Time of Arrival: 06/30/2017 08:05 Arrived By: Ambulatory Arrived From: Home Chief Complaint: C/O LOWER PELVIC PAIN THAT COMES AND GOES, WAS AT [facility] LAST NIGHT WITH YANI E COMPLAINT, DISCHARGED HOME TOLD IT WAS LIGAMENT PAIN. DENIES BLEEDING OR LEAKING OF FLUID Movement: Present Contractions: Denies/Absent Rupture of Membranes: Denies Vaginal Bleeding: None Vaginal Discharge: Denies Recent Sexual Intercouse: Denies Abdominal Trauma: Not Applicable Patient Complaints: Cramping Time Provider Notified: 06/30/2017 09:15 Provider Notified: COBY Initial Plan: MONITOR,
== END 2017-08-06 14:20 | disposition home or self-care (01) ==
LOC: L-D 11:50 → OBT 11:50
PROVIDERS: ATTEND Obstetrics & Gynecology
DX: O26.893 Other specified pregnancy related conditions, third trimester (principal); Z3A.30 30 weeks gestation of pregnancy; R07.9 Chest pain, unspecified
CPT/HCPCS: 76817; 76818; Z7500; G0463

== ENCOUNTER 2017-10-07 11:10 | Inpatient (IN) | payer MEDICAID ==
[~2017-10-07] VITALS: Ht 157.5 cm; Wt 98.6 kg
[~2017-10-07 11:10] MED LIST changes: -ACET325T33 PO; -ACET500C5 PO; +OMEP20CA16 PO
[2017-10-07 11:58] VITALS: Ht 157.5 cm; Wt 98.6 kg
[2017-10-07 12:00] VITALS: BP 134/80; PULSE 85; RESP 18
[2017-10-07] MEDS ORDERED: ACYC200O5 PO (12:06)
[2017-10-07] MEDS ORDERED: OXYTOCIN 30 UNITS/LR 500 ML IV SCH ×2 (12:30)
[2017-10-07] MEDS ORDERED: BUTORPHANOL 2 MG INJ IV PRN ×2 (12:30)
[2017-10-07] MEDS ORDERED: OXYCODONE/ASPIRIN (4.88/325) TAB PO PRN (12:30)
[2017-10-07] MEDS ORDERED: AMPICILLIN 2 GM/NS (PMX) 100 ML IV ONE (12:30)
[2017-10-07] MEDS ORDERED: IBUPROFEN 600 MG TAB PO PRN (12:30)
[2017-10-07] MEDS ORDERED: LIDOCAINE 1% (MPF) 30 ML INJ INJ PRN (12:30)
[2017-10-07] MEDS ORDERED: MISOPROSTOL 200 MCG TAB PR PRN (12:30)
[2017-10-07] MEDS ORDERED: CARBOPROST 250 MCG INJ IM PRN (12:30)
[2017-10-07] MEDS ORDERED: OXYTOCIN 30 UNITS/LR 500 ML IV PRN (12:30)
[2017-10-07] MEDS ORDERED: METHYLERGONOVINE 0.2 MG INJ IM PRN (12:30)
[2017-10-07] MEDS: LACTATED RINGER'S 1,000 ML IV SCH ×2 (12:35→18:59)
[2017-10-07 12:39] LABS: BASOPHILS % 0.3 % (0.0-2.0); EOSINOPHILS % 0.3 % (0.0-7.0); HEMATOCRIT 39.8 % (37.0-47.0); HEMOGLOBIN 13.6 g/dl (12.0-16.0); LYMPHOCYTES # 1.5 10^3/ul (0.8-2.9); LYMPHOCYTES % 15.4 % (15.0-51.0); MEAN CORPUSCULAR HEMOGLOBIN 29.3 pg (29.0-33.0); MEAN CORPUSCULAR HGB CONC 34.2 g/dl (32.0-37.0); MEAN CORPUSCULAR VOLUME 85.8 fl (82.0-101.0); MEAN PLATELET VOLUME 11.2 fl (7.4-10.4); MONOCYTE # 0.6 10^3/ul (0.3-0.9); MONOCYTES % 6.4 % (0.0-11.0); NEUTROPHIL # 7.3 10^3/ul (1.6-7.5); NEUTROPHILS % 76.8 % (39.0-77.0); PLATELET COUNT 214 10^3/UL (140-415); RED BLOOD COUNT 4.64 10^6/ul (4.20-5.40); RED CELL DISTRIBUTION WIDTH 14.1 % (11.5-14.5); WHITE BLOOD COUNT 9.5 10^3/ul (4.8-10.8)
[2017-10-07 12:49] LABS: INR 0.88; PT RATIO 0.9
[2017-10-07 13:47] LABS: ALBUMIN 3.3 g/dl (3.3-4.9); ALBUMIN/GLOBULIN RATIO 0.97; BILIRUBIN,INDIRECT 0.1 mg/dl (0-1.1); BILIRUBIN,TOTAL 0.1 mg/dl (0.2-1.3); CALCIUM 8.9 mg/dl (8.4-10.2); CREATININE 0.55 mg/dl (0.44-1.00); TOTAL PROTEIN 6.7 g/dl (6.1-8.1); URIC ACID 4.2 mg/dl (3.1-7.9)
[2017-10-07 13:49] LABS: PARTIAL THROMBOPLASTIN TIME 27.2 Sec (25.0-35.0)
--- NOTE | 2017-10-07 14:11 | RADRPT ---
PROCEDURE: US OB. CLINICAL INDICATION: evaluation TECHNIQUE: Multiple sonographic images of the pelvis were obtained. The images were reviewed on a PACS workstation. COMPARISON: US PELVIS 08/06/2017; US 06/30/2017 FINDINGS: The a single live intrauterine is identified, with cephalic presentation. Positive movement and cardiac activity is identified. heart rate is within normal limits measuring 150 bpm. The ventricles, stomach, bilateral kidneys, bladder, three-vessel cord, four-chamber heart, and spin e are visualized and without gross abnormality. The placenta is grade II, located anteriorly. The following measurements were obtained: The biparietal diameter measures 9.1 cm. The head circumference measures 33 cm. The abdominal circum ference, measures 36 cm and femur length measures 7.7 cm. This corresponds to a mean gestational age of 38 weeks and 3 days. Estimated weight is 3706 g +/- 556 g. The calculated 2-D ratios are w ith normal limits. IMPRESSION: 1. Single live intrauterine in cephalic presentation. The measured gestational age is appr oximately 38 weeks and 3 days by ultrasound criteria. Estimated due date is October 18, 2017. 2. Estimated weight is 3706 g +/- 556 g. This is within the 69 percentile. RPTAT: AAPP Physician Trini Date Time Electronically viewed and signed by Physician Trini on 10/07/2017 14:10 JL/
[2017-10-07] MEDS ORDERED: DINOPROSTONE 10 MG VAG SUPP VAG ONE (15:00)
[2017-10-07 16:00] VITALS: BP 118/62; PULSE 70; RESP 19
[2017-10-07 16:06] LABS: ADD UMIC NO; UR ASCORBIC ACID NEGATIVE (NEGATIVE); UR BILIRUBIN (Dip) NEGATIVE (NEGATIVE); UR BLOOD (Dip) NEGATIVE (NEGATIVE); UR CLARITY CLEAR (CLEAR); UR COLOR YELLOW (YELLOW); UR GLUCOSE (Dip) NEGATIVE (NEGATIVE); UR KETONES (Dip) 1+ mg/dL (NEGATIVE); UR LEUKOCYTE ESTERASE (Dip) NEGATIVE Leu/ul (NEGATIVE); UR NITRITE (Dip) NEGATIVE (NEGATIVE); UR SPECIFIC GRAVITY (Dip) 1.014 (1.003-1.030); UR TOTAL PROTEIN (Dip) NEGATIVE (NEGATIVE); UR UROBILINOGEN (Dip) NEGATIVE (NEGATIVE)
[2017-10-07] MEDS ORDERED: AMPICILLIN 1 GM/NS (PMX) 50 ML IV SCH (16:30)
[2017-10-07] MEDS ORDERED: ACETAMINOPHEN 325 MG TAB PO PRN (18:00)
[2017-10-07] MEDS ORDERED: FENTAnyl 2MCG/ML-ROPIV 0.2% 100 ML BAG EPI SCH (22:30)
[2017-10-07] MEDS ORDERED: ONDANSETRON 4 MG INJ IV PRN (22:30)
[2017-10-07] MEDS ORDERED: NALOXONE (0.4 MG/ML) INJ IV PRN (22:30)
[2017-10-07] MEDS ORDERED: DIPHENHYDRAMINE 50 MG INJ IV PRN (22:30)
[2017-10-08] MEDS: LACTATED RINGER'S 1,000 ML IV SCH ×2 (02:15→08:36)
[2017-10-08] MEDS ORDERED: OXYTOCIN 30 UNITS/LR 500 ML IV SCH ×3 (04:00→13:33)
[2017-10-08] MEDS ORDERED: INFLUENZA VIRUS VACCINE 0.5 ML SYG IM* ONE (09:00)
[2017-10-08] MEDS ORDERED: AMPICILLIN 2 GM/NS (PMX) 100 ML IVPB ONE (10:00)
--- NOTE | 2017-10-08 11:12 | HP ---
Date/Time of Note Date/Time of Note DATE: 10/08/17 TIME: 11:11 OB - History Hx of Present Chief Complaint: inducction for high bp : 2 Para: 1 Care: Good Care Ultrasounds: Normal mid trimester US Obstetrical Complications: None Medical Complications: None Past Family/Social History * Past Medical, Surgical, Family and Obstetric Histories reviewed from chart. OB Admission Exam Vital Signs Vital Signs Vital Signs Date Time Temp Pulse Resp B/P Pulse Ox O2 Delivery O2 Flow Rate FiO2 10/07/17 12:00 99.4 85 18 134/80 Physical Exam HEENT: WNL Heart: Rhythm Normal Lungs: Clear, Equal Abdomen: WNL Extremities: Normal Reflexes: Normal Cervical Dilatation: 10cm Effacement: 100% Station: +1 Membranes: Ruptured Amniotic Fluid: Clear Heart Rate: 130's Accelerations: Accelerations Present Decelerations: No Decelerations Varibility: Moderate Contractions on Admission: 6-10 Minutes Apart Intensity: Moderate Last 72 hours Lab Results CBC & BMP 10/07/17 11:54 Liver Function Test 10/07/17 11:54 Alanine Aminotransferase (ALT/SGPT) 26 Albumin 3.3 Alkaline Phosphatase 164 H Aspartate Amino Transf (AST/SGOT) 19 Direct Bilirubin 0.00 Total Protein 6.7 OB Assessment/Plan Reason for admission: induction of labor Plan: Section LOBITO THAYER MD Oct 08, 2017 11:12
--- NOTE | 2017-10-08 12:25 | LDN ---
Date/Time of Note Date/Time of Note DATE: 10/08/17 TIME: 12:24 Delivery Summary NSD W/O COMPLICATIONS Placenta Delivered: Spontaneously Meconium: Light Perineal laceration: 1 Anesthesia type: Local Estimated blood loss: 300 Sponge & Needle done & correct: Yes All needle counts correct: Yes Any foreign bodies felt in the: No Problems: LOBITO THAYER MD Oct 08, 2017 12:25
[2017-10-08] MEDS ORDERED: AMPICILLIN 1 GM/NS (PMX) 50 ML IVPB SCH (13:00)
[2017-10-08] MEDS: LACTATED RINGER'S 1,000 ML IV* SCH ×2 (13:33→21:33)
[2017-10-08 14:00] VITALS: BP 122/62; PULSE 77; RESP 20
[2017-10-08] MEDS ORDERED: CARBOPROST 250 MCG INJ IM PRN (14:00)
[2017-10-08] MEDS ORDERED: DIPHENHYDRAMINE 25 MG CAP PO PRN (14:00)
[2017-10-08] MEDS ORDERED: HYDROCODONE/APAP (5/325) TAB PO PRN (14:00)
[2017-10-08] MEDS ORDERED: SENNA/DOCUSATE NA (8.6MG/50MG) TAB PO PRN (14:00)
[2017-10-08] MEDS ORDERED: LANOLIN 7 GM TUBE TOP PRN (14:00)
[2017-10-08] MEDS ORDERED: METHYLERGONOVINE 0.2 MG INJ IM PRN (14:00)
[2017-10-08] MEDS ORDERED: MISOPROSTOL 200 MCG TAB PR PRN (14:00)
[2017-10-08] MEDS ORDERED: OXYTOCIN 30 UNITS/LR 500 ML IV PRN (14:00)
[2017-10-08] MEDS ORDERED: ACETAMINOPHEN 325 MG TAB PO PRN (14:00)
[2017-10-08] MEDS ORDERED: MAGNESIUM HYDROXIDE 30ML CUP PO PRN (14:00)
[2017-10-08] MEDS ORDERED: ZOLPIDEM 5 MG TAB PO PRN (14:00)
[2017-10-08 14:30] VITALS: BP 119/66; PULSE 81; RESP 18
[2017-10-08 16:00] VITALS: BP 118/61; RESP 18
[2017-10-08] MEDS: IBUPROFEN 800 MG TAB PO SCH (17:24)
[2017-10-08] MEDS: WITCH HAZEL/GLYCERIN PAD PR PRN (17:24)
[2017-10-08] MEDS: BENZOCAINE 20% 56 ML SPRAY TOP PRN (17:24)
[2017-10-08 20:39] VITALS: BP 116/65; PULSE 18; PULSE 81; RESP 19
[2017-10-09] MEDS: IBUPROFEN 800 MG TAB PO SCH ×5 (00:22→23:56)
[2017-10-09 04:00] VITALS: BP 109/59; PULSE 72; RESP 18
[2017-10-09] MEDS: LACTATED RINGER'S 1,000 ML IV* SCH ×3 (05:33→21:33)
[2017-10-09 08:00] VITALS: BP 106/52; PULSE 69; RESP 17
[2017-10-09] MEDS ORDERED: INFLUENZA VIRUS VACCINE 0.5 ML SYG IM* ONE (09:00)
[2017-10-09 09:55] LABS: BASOPHILS % 0.3 % (0.0-2.0); EOSINOPHILS # 0.1 10^3/ul (0.0-0.5); EOSINOPHILS % 0.4 % (0.0-7.0); HEMOGLOBIN 11.7 g/dl (12.0-16.0); LYMPHOCYTES # 1.6 10^3/ul (0.8-2.9); MEAN CORPUSCULAR HEMOGLOBIN 29.6 pg (29.0-33.0); MEAN CORPUSCULAR HGB CONC 33.4 g/dl (32.0-37.0); MEAN CORPUSCULAR VOLUME 88.6 fl (82.0-101.0); MEAN PLATELET VOLUME 10.2 fl (7.4-10.4); MONOCYTE # 0.5 10^3/ul (0.3-0.9); MONOCYTES % 3.9 % (0.0-11.0); NEUTROPHIL # 10.2 10^3/ul (1.6-7.5); NEUTROPHILS % 81.8 % (39.0-77.0); PLATELET COUNT 165 10^3/UL (140-415); RED BLOOD COUNT 3.95 10^6/ul (4.20-5.40); RED CELL DISTRIBUTION WIDTH 14.6 % (11.5-14.5); WHITE BLOOD COUNT 12.5 10^3/ul (4.8-10.8)
--- NOTE | 2017-10-09 11:43 | PN ---
Date/Time of Note Date/Time of Note DATE: 10/09/17 TIME: 11:43 OB Subjective Subjective Subjective 37 years old female . s/p VD PPD #1 Reports decreased vaginal bleeding. Urinated. Breast-feeding. Ambulated. Denies any complaint. OB Objective Objective Objective General appearance: Alert and oriented 4. Patient does not appear to be in any acute distress. Abdomen: Soft, fundus palpable below the umbilicus and nontender Extremities: No calf tenderness, no click no edema Breast: No evidence of engorgement mastitis or fissure Hematology - 72 Hrs Test 10/07/17 11:54 10/09/17 09:34 White Blood Count 9.510^3/ul (4.8-10.8) # 12.510^3/ul (4.8-10.8) #H Red Blood Count 4.6410^6/ul (4.20-5.40) 3.9510^6/ul (4.20-5.40) L Hemoglobin 13.6g/dl (12.0-16.0) 11.7g/dl (12.0-16.0) L Hematocrit 39.8% (37.0-47.0) 35.0% (37.0-47.0) L Mean Corpuscular Volume 85.8fl (82.0-101.0) 88.6fl (82.0-101.0) Mean Corpuscular Hemoglobin 29.3pg (29.0-33.0) 29.6pg (29.0-33.0) Mean Corpuscular Hemoglobin Concent 34.2g/dl (32.0-37.0) 33.4g/dl (32.0-37.0) Red Cell Distribution Width 14.1% (11.5-14.5) 14.6% (11.5-14.5) H Platelet Count 82362^3/UL (140-415) 58983^3/UL (140-415) # Mean Platelet Volume 11.2fl (7.4-10.4) H 10.2fl (7.4-10.4) Neutrophils % 76.8% (39.0-77.0) 81.8% (39.0-77.0) H Lymphocytes % 15.4% (15.0-51.0) 13.0% (15.0-51.0) L Monocytes % 6.4% (0.0-11.0) 3.9% (0.0-11.0) Eosinophils % 0.3% (0.0-7.0) 0.4% (0.0-7.0) Basophils % 0.3% (0.0-2.0) 0.3% (0.0-2.0) Nucleated Red Blood Cells % 0.0/100WBC (0.0-0.0) 0.0/100WBC (0.0-0.0) Neutrophils # 7.310^3/ul (1.6-7.5) 10.210^3/ul (1.6-7.5) H Lymphocytes # 1.510^3/ul (0.8-2.9) 1.610^3/ul (0.8-2.9) Monocytes # 0.610^3/ul (0.3-0.9) 0.510^3/ul (0.3-0.9) Eosinophils # 0.010^3/ul (0.0-0.5) 0.110^3/ul (0.0-0.5) Basophils # 0.010^3/ul (0.0-0.1) 0.010^3/ul (0.0-0.1) Nucleated Red Blood Cells # 0.010^3/ul (0.0-0.0) 0.010^3/ul (0.0-0.0) Chemistry Test 10/07/17 11:54 Sodium Level 137mmol/L (135-144) Potassium Level 4.0mmol/L (3.5-5.1) Chloride Level 108mmol/L (97-110) Carbon Dioxide Level 19mmol/L (21-31) L Anion Gap 14 (8-16) Blood Urea Nitrogen 10mg/dl (7-20) Creatinine 0.55mg/dl (0.44-1.00) Glucose Level 80mg/dl (70-220) Uric Acid 4.2mg/dl (3.1-7.9) Calcium Level 8.9mg/dl (8.4-10.2) Total Bilirubin 0.1mg/dl (0.2-1.3) L Direct Bilirubin 0.00mg/dl (0.00-0.20) Indirect Bilirubin 0.1mg/dl (0-1.1) Aspartate Amino Transf (AST/SGOT) 19IU/L (15-46) Alanine Aminotransferase (ALT/SGPT) 26IU/L (13-69) Alkaline Phosphatase 164IU/L (42-121) H Total Protein 6.7g/dl (6.1-8.1) Albumin 3.3g/dl (3.3-4.9) Globulin 3.40g/dl (1.3-3.2) H Albumin/Globulin Ratio 0.97 OB Assessment/Plan Other Assessment: Status post day #1 Doing well Continue routine care Anticipate DC home tomorrow There was an error in the reported SC that I talked to the charge nurse and confirmed that is an error. SC reported to be 18 at 20: 00 is NIVIA ELIZABETH MD Oct 09, 2017 11:43
[2017-10-09 16:00] VITALS: BP 129/68; PULSE 86
[2017-10-09 20:00] VITALS: BP 118/56; PULSE 72; RESP 18
[2017-10-10] MEDS: LACTATED RINGER'S 1,000 ML IV* SCH (01:11)
[2017-10-10 04:00] VITALS: BP 111/66; PULSE 68; RESP 17
[2017-10-10] MEDS: IBUPROFEN 800 MG TAB PO SCH ×3 (05:59→17:34)
[2017-10-10 07:45] VITALS: BP 122/62; PULSE 79; RESP 19
[2017-10-10] MEDS ORDERED: MEASLES,MUMPS,RUBELLA VACCINE INJ SC* ONE (09:00)
[2017-10-10] MEDS: BENZOCAINE 20% 56 ML SPRAY TOP PRN (09:00)
[2017-10-10] MEDS ORDERED: VARICELLA VACCINE LIVE/PF 1,350 UNIT/0.5 ML ML SC* ONE (09:00)
[2017-10-10] MEDS ORDERED: DIPHTH/TET/ACEL PERTUSS (ADULT) 0.5 ML VIAL IM* ONE (09:00)
[2017-10-10] MEDS: WITCH HAZEL/GLYCERIN PAD PR PRN (09:00)
--- NOTE | 2017-10-10 09:47 | DS ---
Date/Time of Note Date/Time of Note DATE: 10/10/17 TIME: 09:43 Obstetrical Discharge Record Final Diagnosis Final Diagnosis: Term delivered Vaginal Delivery Obstetrical Delivery: Spontaneous Section Primary Indication Current Medications Medications (Trade) Dose Ordered Sig/Mich Route PRN Reason Start Time Stop Time Status Last Admin Dose Admin Lactated Ringer's 1,000 ml @ 125 mls/hr Q8H IV 10/07/17 12:07 10/08/17 13:35 DC 10/08/17 08:36 Ampicillin 100 ml @ 100 mls/hr ONCE ONCE IV 10/07/17 12:30 10/07/17 13:23 DC Ampicillin (Ampicillin 1 Gm/ NS (Pmx)) 50 ml @ 100 mls/hr Q4H IV 10/07/17 16:30 10/07/17 16:30 DC Butorphanol Tartrate (Stadol) 1 mg Q2H PRN IV PAIN 10/07/17 12:30 10/08/17 13:35 DC Butorphanol Tartrate (Stadol) 2 mg Q2H PRN IV PAIN 10/07/17 12:30 10/08/17 13:35 DC 10/07/17 21:58 Lidocaine 30 ml 30 ml ONCE PRN INJ EPISIOTOMY/TEARING 10/07/17 12:30 10/08/17 13:35 DC Oxytocin/Lactated Ringer's 500 ml @ 500 mls/hr ONCE POST IV 10/07/17 12:30 10/08/17 13:35 DC Oxytocin/Lactated Ringer's 500 ml @ 125 mls/hr POST IV 10/07/17 12:30 10/08/17 13:35 DC 10/08/17 12:23 Ibuprofen (Motrin) 600 mg ONCE PRN PO Mild Pain (Pain Score 1-3) 10/07/17 12:30 10/08/17 13:35 DC 10/08/17 13:17 Oxycodone/Aspirin 2 tab 2 tab ONCE PRN PO Moderate to Severe Pain (4-10) 10/07/17 12:30 10/08/17 13:35 DC Oxytocin/Lactated Ringer's 500 ml @ 0 mls/hr ONCE PRN IV For Hemorrhage Management 10/07/17 12:30 10/08/17 13:35 DC Methylergonovine Maleate (Methergine) 0.2 mg ONCE PRN IM VAGINAL BLEEDING 10/07/17 12:30 10/08/17 13:35 DC Carboprost Tromethamine (Hemabate) 250 mcg ONCE PRN IM VAGINAL BLEEDING 10/07/17 12:30 10/08/17 13:35 DC Misoprostol (Cytotec) 1,000 mcg ONCE PRN CA VAGINAL BLEEDING 10/07/17 12:30 10/08/17 13:35 DC Dinoprostone (Cervidil Vaginal Supp) 10 mg ONCE ONCE VAG 10/07/17 15:00 10/07/17 15:01 DC 10/07/17 15:12 Acetaminophen 650 mg 650 mg Q4H PRN PO PAIN AND OR ELEVATED TEMP 10/07/17 18:00 10/08/17 13:35 DC Oxytocin/Lactated Ringer's 500 ml @ 0 mls/hr TITRATE IV 10/08/17 04:00 10/08/17 13:35 DC 10/08/17 08:35 Naloxone HCl (Narcan) 0.1 mg Q2M PRN IV FOR RESP RATE 8 OR LESS 10/07/17 22:30 10/08/17 13:35 DC Diphenhydramine HCl (Benadryl) 25 mg Q6H PRN IV ITCHING 10/07/17 22:30 10/08/17 13:35 DC Ondansetron HCl (Zofran Inj) 4 mg Q6H PRN IV NAUSEA AND/OR VOMITING 10/07/17 22:30 10/08/17 13:35 DC 10/08/17 02:41 Fentanyl/ Ropivacaine 100 ml EPIDURAL INFUSION EPI 10/07/17 22:30 10/08/17 13:35 DC 10/08/17 09:42 Influenza Virus Vaccine 0.5 ml 0.5 ml ONCE ONCE IM* 10/08/17 09:00 10/08/17 09:01 DC 10/09/17 13:06 Oxytocin/Lactated Ringer's 500 ml @ 0 mls/hr Q0M IV 10/08/17 08:00 10/08/17 13:35 DC Ampicillin 100 ml @ 100 mls/hr ONCE ONCE IVPB 10/08/17 10:00 10/08/17 10:59 DC 10/08/17 10:14 Ampicillin (Ampicillin 1 Gm/ NS (Pmx)) 50 ml @ 100 mls/hr Q4 IVPB 10/08/17 13:00 10/08/17 13:35 DC Influenza Virus Vaccine 0.5 ml 0.5 ml ONCE ONCE IM* 10/09/17 09:00 10/09/17 09:00 DC Oxytocin/Lactated Ringer's 500 ml @ 50 mls/hr Q10H IV 10/08/17 13:33 10/08/17 23:32 DC Lactated Ringer's (Lr) 1,000 ml @ 125 mls/hr Q8H IV* 10/08/17 13:33 10/10/17 07:31 DC Ibuprofen (Motrin) 800 mg Q6 PO 10/08/17 18:00 10/10/17 05:59 Acetaminophen/ Hydrocodone Bitart ([place] (5/325)) 2 tab Q4H PRN PO PAIN LEVEL 6-10 10/08/17 14:00 Diphenhydramine HCl (Benadryl) 25 mg Q6H PRN PO PRURITUS 10/08/17 14:00 Zolpidem Tartrate (Ambien) 10 mg QHS PRN PO INSOMNIA 10/08/17 14:00 Senna/Docusate Sodium (Senokot-S) 1 tab BID PRN PO CONSTIPATION 10/08/17 14:00 Magnesium Hydroxide (Milk Of Mag) 30 ml Q12H PRN PO CONSTIPATION 10/08/17 14:00 Witch Melonie/ Glycerin (Tucks Pads) 1 pad BEDSIDE MEDICATION PRN CA HEMORRHOID/EPISIOTMY PAIN 10/08/17 14:00 10/10/17 09:00 Benzocaine (Dermoplast Silex) 1 spray BEDSIDE MEDICATION PRN TOP HEMORRHOID/EPISIOTMY PAIN 10/08/17 14:00 10/10/17 09:00 Lanolin (Hhm-P-Sqkvsr) 1 applic BEDSIDE MEDICATION PRN TOP BEDSIDE FOR NICHELLE TO NIPPLES 10/08/17 14:00 10/08/17 17:24 Measles/Mumps/ Rubella Vaccine Live (Mmr Ii Vaccine) 0.5 ml ONCE ONCE SC* 10/10/17 09:00 10/10/17 09:01 DC Diphtheria/ Tetanus/Acell Pertussis (Adacel) 0.5 ml ONCE ONCE IM* 10/10/17 09:00 10/10/17 09:01 DC Varicella Virus Vaccine Live (Varivax Vaccine With Diluent) 1,350 unit ONCE ONCE SC* 10/10/17 09:00 10/10/17 09:01 DC Acetaminophen 650 mg 650 mg Q4H PRN PO ELEVATED TEMPERATURE 10/08/17 14:00 Oxytocin/Lactated Ringer's 500 ml @ 0 mls/hr ONCE PRN IV For Hemorrhage Management 10/08/17 14:00 Methylergonovine Maleate (Methergine) 0.2 mg ONCE PRN IM VAGINAL BLEEDING 10/08/17 14:00 10/08/17 20:39 Carboprost Tromethamine (Hemabate) 250 mcg ONCE PRN IM VAGINAL BLEEDING 10/08/17 14:00 Misoprostol (Cytotec) 1,000 mcg ONCE PRN CA VAGINAL BLEEDING 10/08/17 14:00 Condition on Discharge Physical Assessment Voiding: Yes Bowel Movement: Yes Breast: Soft, non-tender Fundus: Firm Episiotomy: [id number] is healing Calf Tenderness: No Patient Condition: Good BETHANY RAMESH MD Oct 10, 2017 09:47
[2017-10-10 16:00] VITALS: BP 118/60; PULSE 70; RESP 18
== END 2017-10-10 18:12 | disposition home or self-care (01) | DRG 775 ==
LOC: L-D 11:10 → PP1 10-08 14:50 → EDSTATUS 10-13 11:07
PROVIDERS: ADMIT Obstetrics & Gynecology; ATTEND Obstetrics & Gynecology
PROC: 10E0XZZ Delivery of Products of Conception, External Approach (ICD-10-PCS; principal; 2017-10-08)
DX: O75.89 Other specified complications of labor and delivery (principal); R03.0 Elevated blood-pressure reading, without diagnosis of hypertension; Z37.0 Single live birth; Z3A.39 39 weeks gestation of pregnancy
CPT/HCPCS: 62319; 76815; 80053; 81003; 84560; 85025; 85610; 85730; 86592; 86900; 86901; 87340; 90715; 90716; 99464; J0290; J0595; J2210; J2405; J2590; J3010; J7120